=== PATIENT | female | born 1990 | race Two or more races ===

== ENCOUNTER 2016-04-15 22:15 | Emergency (ER) | payer OTHER | END 2016-04-16 01:00 | disposition home or self-care (01) | LOC: ED 22:15 | DX: O20.0 Threatened abortion (principal); Z3A.14 14 weeks gestation of pregnancy ==

== ENCOUNTER 2016-06-15 21:27 | Observation (INO) | payer OTHER, MEDICAID ==
[2016-06-15 21:46] VITALS: BMI 35.9
[2016-06-15] MEDS ORDERED: IV START KIT ONE (21:59)
[2016-06-15] MEDS ORDERED: LACTATED RINGERS 1,000 ML ONE (21:59)
[2016-06-15] MEDS ORDERED: MAGNESIUM HYDROXIDE/AL HYDROX 30 ML UDCUP PO ONE (22:00)
[2016-06-15] MEDS ORDERED: D5LR 1,000 ML IV SCH (22:00)
[2016-06-15] MEDS ORDERED: HYDROXYZINE PAMOATE 50 MG CAPSULE PO ONE (22:00)
[2016-06-15] MEDS ORDERED: ONDANSETRON 4 MG/2ML 2 ML VIAL IV ONE (22:00)
--- NOTE | 2016-06-15 22:09 | PCMOBT ---
OB Triage - Subjective TYRELL JASMEET SALEEM is a 25 year old G3 P at 22+w who presents to L & D triage c/o abdominal pain ALEX 10/12/16 Pt goes to [facility] [place] Uncomplicated course, per pt 2 day history of abdominal pain, starting at mid-epigastric and radiating down left side to LLQ and also left lower back. Pain is sharp in nature. Pt also has nausea which started after the pain started. Pt went to [facility] and was evaluated - was told she had BV was given metronidazole, and was told baby was doing well. Pt has had appendectomy 8 yrs ago. Previous x 1, SAB at 13w x 1 Denies any other medical problems. Denies any h/o drug use, alcohol, or smoking. - Physical Exam General: Other (appeared in mod distress, diffuse abdominal pain) HEENT: Normocephalic, Atraumatic Abdomen: Soft, Fundus Firm and Below Umbilicus (gravid, c/w dates), Other ( tenderness in mid epigastric, LLQ, but soft, no rebound / guarding) - Pelvic Exam Cervix: Closed and Long, Other (no discharge / bleeding) Uterus: Gravid, Nontender - Heart Tones Baseline: 130 - Assessment/ Plan 25 year old G3 P at 22+ weeks with nonspecific abdominal pain does not appear to be obstetrical check CBC, CMP, amylase, lipase start IV fluids [id number] zofran vistaril maalox check OB ultrasound
[2016-06-15 22:34] LABS: ABSOLUTE NEUTROPHIL COUNT 9.8 K/mm3 (1.8-7.7); BASO % 0.3 % (0.2-1.0); EOS # 0.2 (0.0-0.5); EOS % 1.4 % (0.9-2.9); HEMATOCRIT 35.9 % (37.0-47.0); IMM NEUT # 0.1 K/mm3 (0-0.2); IMM NEUT% 0.4 % (0-1); LYMPH # 1.7 (1.0-4.8); LYMPH % 13.8 % (15-45); MEAN CELL VOLUME 80.7 fl (81.0-99.0); MEAN CORPUSCULAR HGB CONC 33.4 g/dl (33.0-37.0); MEAN PLATELET VOLUME 9.8 fl (7.4-10.4); MONO # 0.7 (0.0-0.8); MONO % 5.5 % (4-12); NEUT % 78.6 % (43-75); PLATELET COUNT 270 K/mm3 (130-400)
[2016-06-15] MEDS ORDERED: MAG HYDROX/AL HYDROX/SIMETH 30 ML UDCUP ONE (22:38)
[2016-06-15 22:51] LABS: SPECIFIC GRAVITY 1.025 (1.001-1.030); URINE BILIRUBIN NEGATIVE (NEGATIVE); URINE BLOOD 4+ (NEGATIVE); URINE GLUCOSE (UA) NEGATIVE (NEGATIVE); URINE LEUKOCYTE ESTERASE 1+ (NEGATIVE); URINE NITRITE NEGATIVE (NEGATIVE); URINE PROTEIN TRACE (NEGATIVE); URINE UROBILINOGEN NORMAL (0-1 mg/dl)
[2016-06-15 23:01] LABS: URINE APPEARANCE SL CLOUDY; URINE COLOR DARK YELLOW
--- NOTE | 2016-06-15 23:11 | US ---
Name: TYRELL SALEEM Exam: Limited obstetrical ultrasound Comparison: None Clinical history: Abdominal pain. Gestation should be 23 weeks 0 days. Findings: Transabdominal and endovaginal imaging was performed. There is a gravid uterus and there is a single living intrauterine gestation in cephalic presentation with a heart rate of 153 bpm. Cervix is long and closed at 3.5 cm and there is no funneling. There is no change with fundal pressure. There is a grade 1 anterior placenta without placenta previa. Right ovary is not identified. Left ovary is 4.1 x 3.0 x 1.1 cm and there is flow within the left ovary. There is no free fluid within the cul-de-sac. Gestational fluid volume is grossly normal. anatomic survey is not performed. Impression: 1. Single living intrauterine gestation cephalic presentation 2. Cervix is long and closed 3. Grade 1 anterior placenta without placenta previa. There is no abruption 4. Grossly normal DIRK Note: Findings were discussed Dr. Chiu at 2307 hours
[2016-06-15] MEDS ORDERED: BUTORPHANOL TARTRATE 1 MG/ML VIAL IV ONE (23:16)
[2016-06-15] MEDS ORDERED: LACTATED RINGERS 1,000 ML IV ONE (23:17)
[2016-06-15 23:26] LABS: URINE BACTERIA 3+; URINE MUCUS 3+; URINE RBC >100 /hpf
[2016-06-15 23:27] LABS: ALB/GLOB RATIO 1.1 (>1.0); ALBUMIN 3.1 gm/dL (3.5-5.7); CALCIUM 8.5 mg/dL (8.6-10.3)
--- NOTE | 2016-06-15 23:50 | PDOC36 ---
Provider Note Note: Ultrasound study: cervical length wnl, placenta wnl, normal amnionic fluid, no ovarian cyst / masses noted Lab studies: WBC 12.5, significant for 4+ bld and 1+ LE on u/a. Pt still having pain and nausea S/S suggest nephrolithiasis Will admit for observation, pain control with stadol. Ancef IV fluids. Laboratory Results - last 24 hr 06/15/16 06/15/16 06/15/16 22:13 22:35 22:55 WBC 12.5 H RBC 4.45 Hgb 12.0 Hct 35.9 L MCV 80.7 L MCH 27.0 MCHC 33.4 RDW 14.0 Plt Count 270 Neut % (Auto) 78.6 H Lymph % (Auto) 13.8 L Rogers % (Auto) 5.5 Baso % (Auto) 0.3 Absolute Neuts (auto) 9.8 H Eosinophils % 1.4 Sodium 135 Potassium 3.5 L Chloride 105 Carbon Dioxide 22 Anion Gap 12 BUN 9 Creatinine 0.6 Estimated GFR 121 H BUN/Creatinine Ratio 15 Glucose 204 H Calcium 8.5 L Total Bilirubin 0.2 AST 12 L ALT 10 Alkaline Phosphatase 60 Total Protein 5.9 L Albumin 3.1 L Globulin 2.8 Albumin/Globulin Ratio 1.1 Amylase 78 Lipase 16 Urine Color Dark yellow Urine Appearance Sl cloudy Urine pH 6.0 Ur Specific [place] 1.025 Urine Protein Trace Urine Glucose (UA) Negative Urine Ketones Negative Urine Blood 4+ Urine Nitrite Negative Urine Bilirubin Negative Urine Urobilinogen Normal Ur Leukocyte Esterase 1+ Urine RBC >100 Urine WBC 2-4 Ur Epithelial Cells 7-10 Urine Bacteria 3+ Urine Mucus 3+ % Immature Granulocyt 0.4
[2016-06-16] MEDS ORDERED: ONDANSETRON 4 MG/2ML 2 ML VIAL IV PRN (00:12)
[2016-06-16] MEDS ORDERED: DIPHENHYDRAMINE HCL 50 MG/1 ML VIAL IV PRN (00:12)
[2016-06-16] MEDS ORDERED: BLISTEX LIPSTICK 1 EACH TP PRN (00:12)
[2016-06-16] MEDS ORDERED: DOCUSATE SODIUM 100 MG CAPSULE PO PRN (00:12)
[2016-06-16] MEDS ORDERED: CEFAZOLIN SODIUM 1 GRAM PREMIX 1 G in Premix (D5W) 50 ml 1 EACH IV SCH (00:12)
[2016-06-16] MEDS ORDERED: MAGNESIUM HYDROXIDE/AL HYDROX 30 ML UDCUP PO PRN (00:12)
[2016-06-16] MEDS ORDERED: MENTHOL/CETYLPYRD 1 EACH LOZENGE PO PRN (00:12)
[2016-06-16] MEDS ORDERED: PUMP TUBING ONE (00:34)
[2016-06-16] MEDS ORDERED: CEFAZOLIN SODIUM 1 GRAM PREMIX 50 ML IV ONE (00:35)
[2016-06-16] MEDS: LACTATED RINGERS 1,000 ML IV SCH ×4 (00:43→21:54)
[2016-06-16] MEDS: ACETAMINOPHEN 325 MG TABLET PO PRN ×4 (01:06→21:26)
[2016-06-16] MEDS: BUTORPHANOL TARTRATE 1 MG/ML VIAL IV PRN ×5 (03:49→23:07)
[2016-06-16] MEDS: CEFAZOLIN SODIUM 1 GRAM PREMIX 1 G in Premix (D5W) 50 ml 1 EACH IV SCH ×2 (08:33→16:06)
--- NOTE | 2016-06-16 08:43 | PDOC36 ---
Provider Note Note: Still having intermittent severe pain, now in LLQ mostly, and a little in the back. Pt getting stadol for pain which helps. Nausea is better. Pt is voiding more, now. Urine being strained. Vital Signs - 24 hr 06/16/16 06/16/16 06/16/16 01:00 01:32 04:00 Temperature 98.2 F 98.3 F Pulse Rate 88 75 Respiratory 16 16 16 Rate Blood Pressure 110/63 110/59 O2 Saturation 99 96 by Pulse Oximetry 06/16/16 08:00 Temperature 98.6 F Pulse Rate 85 Respiratory 16 Rate Blood Pressure 101/56 O2 Saturation 98 by Pulse Oximetry Abdomen: soft, gravid, diffuse tenderness without rebound or guarding continue IV fluids, pain control with stadol. chk heart tones daily
--- NOTE | 2016-06-16 10:04 | HP ---
TYRELL SOSA [id number] DATE OF ADMISSION: June 16, 2016 ADMITTING DIAGNOSES: 1. Nephrolithiasis. 2. 22-week . HISTORY OF PRESENT ILLNESS: Patient is a 25-year-old 3, para 1, at 22 weeks of who presents to labor and delivery triage complaining of abdominal pain. Patient's estimated due date is October 12, 2016. Patient goes to [facility] in [place] and had an otherwise uncomplicated course. Patient complains of approximately a two day history of abdominal pain which started in the mid epigastric area and subsequently down to the left side to the left lower quadrant and also left lower back pain. It is sharp in nature. Patient also has had nausea which started after the pain started. Yesterday she went to [facility] and was evaluated and subsequently was told she had bacterial vaginosis and was given metronidazole and also an evaluation of the showed that the baby was doing well at that time. Studies upon admission were significant for a WBC of 12.5, hemoglobin of 12.0, platelet count 270, creatinine of 0.6, AST of 12, ALT of 10, amylase of 78 and lipase of 60. The urinalysis showed 4+ blood, negative nitrites and 1+ leukocytes. An ultrasound was performed which showed a normal cervical length. The cervix is long and closed, and there is grossly normal amniotic fluid. There is no abruption of placenta. PAST MEDICAL HISTORY: Patient has had: 1. One prior vaginal delivery. 2. On spontaneous . 3. She states that she did have a history of kidney stones. PAST SURGICAL HISTORY: Patient has had an appendectomy eight years ago. PHYSICAL EXAMINATION: GENERAL: Patient appeared to be in moderate distress with diffuse abdominal pain. HEART: Is regular rate and rhythm. LUNGS: Clear to auscultation bilaterally. ABDOMEN: Soft, fundus is firm and gravid. There is tenderness in the midepigastric and left lower quadrant but her abdomen is soft with no rebound or guarding. PELVIC: Shows a closed and long cervix with no discharge or bleeding. heart tones were noted at 130. ASSESSMENT/PLAN: This is a 25-year-old 3, para 1, at 22 weeks of with nonspecific abdominal pain which does not appear to be obstetrical. However, the laboratory studies are significant for 4+ blood in the urine and there is suspicion for kidney stones. Patient is to be admitted for IV hydration and pain control. We will also start Ancef and check heart tones daily. Patient is also to be given Zofran for nausea as well.
[2016-06-17] MEDS: CEFAZOLIN SODIUM 1 GRAM PREMIX 1 G in Premix (D5W) 50 ml 1 EACH IV SCH ×2 (01:23→07:57)
[2016-06-17] MEDS: ACETAMINOPHEN 325 MG TABLET PO PRN ×2 (01:24→22:12)
[2016-06-17] MEDS: BUTORPHANOL TARTRATE 1 MG/ML VIAL IV PRN ×5 (04:47→23:32)
[2016-06-17] MEDS: LACTATED RINGERS 1,000 ML IV SCH ×3 (05:48→18:23)
--- NOTE | 2016-06-17 10:28 | PDOC36 ---
Provider Note Note: Pt still having intermittent severe pain. States her urine has odor and tea colored. Voiding regularly. Pain med - on stadol. AVSS - afebrile Abdomen soft, tenderness without rebound / guarding LLQ and slight tenderness left lower back / flank. continue IV fluids / stadol august d/c ancef.
[2016-06-18] MEDS: LACTATED RINGERS 1,000 ML IV SCH ×2 (00:52→07:34)
[2016-06-18] MEDS: BUTORPHANOL TARTRATE 1 MG/ML VIAL IV PRN ×2 (05:10→10:58)
[2016-06-18] MEDS: ACETAMINOPHEN 325 MG TABLET PO PRN (07:22)
--- NOTE | 2016-06-18 09:51 | PDOC36 ---
Provider Note Note: Pt reported pink tinged mucous yesterday. heart tones were normal. Pt reports voiding well with no dysuria. Pt states she is now getting right flank pain, not as bad as on her left side. Left flank pain is worse when ambulating. No more nausea since first day of admission. Exam: Alert, mild distress Abdomen - tenderness in LLQ with deep palpation with no rebound / guarding; left lower back tenderness. Right flank tenderness noted. a/p) check bilateral renal ultrasound recheck bmp, u/a cont stadol check daily heart tones Vital Signs - 24 hr 06/17/16 06/17/16 06/17/16 11:31 14:14 15:50 Temperature 98.3 F Pulse Rate 89 85 Respiratory 16 16 16 Rate Blood Pressure 120/63 O2 Saturation 96 96 by Pulse Oximetry 06/17/16 06/17/16 06/17/16 16:22 19:10 19:32 Temperature 98.2 F 97.9 F Pulse Rate 70 72 Respiratory 18 16 16 Rate Blood Pressure 123/55 99/58 O2 Saturation 98 97 by Pulse Oximetry 06/18/16 06/18/16 06/18/16 00:13 00:20 00:56 Temperature 97.9 F Pulse Rate 73 Respiratory 18 16 Rate Blood Pressure 95/54 O2 Saturation 97 97 by Pulse Oximetry 06/18/16 06/18/16 06/18/16 04:30 05:58 06:36 Temperature 97.8 F 97.6 F Pulse Rate 73 60 66 Respiratory 15 16 Rate Blood Pressure 89/54 96/50 97/44 O2 Saturation 98 97 by Pulse Oximetry 06/18/16 07:23 Temperature Pulse Rate Respiratory 16 Rate Blood Pressure O2 Saturation by Pulse Oximetry
[2016-06-18 10:29] LABS: CALCIUM 8.5 mg/dL (8.6-10.3)
[2016-06-18] MEDS ORDERED: DIPHENHYDRAMINE HCL 25 MG CAPSULE PO SCH (12:00)
[2016-06-18 12:23] VITALS: BP 101/51
--- NOTE | 2016-06-18 12:42 | US ---
Exam: Renal ultrasound COMPARISON: Radiographs 10/16/[address] 10/15/2011 INDICATION: 23 weeks . Left lower quadrant pain, history of kidney stones. Findings: Renal ultrasound was obtained. Right kidney measures 13.1 cm in length and left kidney measures 13.0 cm in length. There is minor fullness of both collecting systems without charleen hydronephrosis. There is normal renal cortical thickness and echogenicity. No definite urinary calculus is identified. Resistive index on the right is 0.65 and on the left is 0.69. Urinary bladder contained 36 8 mL prevoid. Both ureteral jets were identified. Postvoid residual is 39 mL. IMPRESSION: 1. No sonographic evidence of urinary calculus. 2. Minor fullness of both collecting systems without charleen hydronephrosis. 3. Post void residual 39 mL.
[2016-06-18 13:05] LABS: URINE BILIRUBIN NEGATIVE (NEGATIVE); URINE BLOOD 4+ (NEGATIVE); URINE GLUCOSE (UA) NEGATIVE (NEGATIVE); URINE LEUKOCYTE ESTERASE TRACE (NEGATIVE); URINE NITRITE NEGATIVE (NEGATIVE); URINE PROTEIN NEGATIVE (NEGATIVE); URINE UROBILINOGEN NORMAL (0-1 mg/dl)
[2016-06-18 13:26] LABS: URINE APPEARANCE HAZY; URINE COLOR LIGHT YELLOW
[2016-06-18 13:43] LABS: URINE RBC 30-40 /hpf
[2016-06-18 13:44] LABS: URINE BACTERIA FEW
--- NOTE | 2016-06-18 21:18 | DS ---
AREN HARPERTYRELL [id number] DATE OF ADMISSION: June 15, 2016 DATE OF DISCHARGE: June 18, 2016 ADMITTING DIAGNOSES: 1. 22 weeks . 2. Abdominal pain. 3. Nephrolithiasis. HISTORY OF PRESENT ILLNESS: The patient is a 25-year-old 3, para 1, 0//1 at 22 weeks plus 6 days. Patient was admitted complaining of abdominal pain. Patient has an estimated delivery date of October 12, 2016 by report. Patient goes to [facility] for her obstetrical care and has had thus far an uncomplicated course per the patient. Patient presented with a two-day history of abdominal pain starting in the midepigastrium and radiating down the left side to the left lower quadrant and also left lower back. Patient describes the pain as sharp in nature as well as nausea which started after the pain had started. The day prior to admission the patient went to [facility] and was evaluated and was given metronidazole for bacterial vaginosis and was told that the and baby were doing well. Upon admission several studies were performed. She had an ultrasound which showed normal closed cervix with a cervical length of 3.5 cm. The placenta was anterior and without any previa or signs of abruption. The right ovary was not identified. However, the left ovary was noted and there was flow within the left ovary. No masses were noted. Patient's laboratory studies showed a WBC of 12.5, hemoglobin of 12.0, platelet count of 270, AST of 12, ALT of 10, amylase of 78, lipase of 16, creatinine 0.6. The urinalysis showed 4+ urine blood and 1+ leukocyte esterase with urine bacteria and mucus noted. Due to the hematuria that was noted and dehydration, patient was admitted for presumptive nephrolithiasis. Patient was started on Ancef and was given Stadol as needed for pain. The urine was being strained. Patient continued with this. On hospital day number two, the Ancef was discontinued as she had continued to be afebrile. Patient had intermittent pain throughout her hospital stay and received Stadol approximately four doses per day. She had voided well and denies passing any stones. On the third hospital day, the patient reported some pain also in her right flank, and therefore an ultrasound was performed of the kidneys and bladder. This showed no sonographic evidence of urinary calculus. There was minor fullness of both collecting systems. However, no charleen hydronephrosis noted. Both ureteral jets were identified in the bladder ultrasound, and there was post void residual of 39. Upon evaluation of the ultrasound, it was concluded that any urinary calculi had been passed. Patient still complained of pain, and this may be residual pain from the kidney stone. However, as there are no remaining calculi noted, patient is discharged. She was given prescriptions for [place] and already has an appointment with her primary feed adviser the next day. Patient has had daily heart monitoring with Doppler tones and this has been normal. Patient is discharged with prescription for [place] #20 and is in stable condition upon discharge.
== END 2016-06-18 15:30 | disposition home or self-care (01) ==
LOC: FBCOUT 21:27 → FBC 21:27 → FBCOUT 23:53 → MS 23:53
PROVIDERS: ADMIT Obstetrics & Gynecology; ATTEND Obstetrics & Gynecology
DX: O99.612 Diseases of the digestive system complicating pregnancy, second trimester (principal); N20.0 Calculus of kidney; Z87.442 Personal history of urinary calculi; Z3A.23 23 weeks gestation of pregnancy
CPT/HCPCS: 96374; 96375; 96360; 96361; 83690; 82150; 85025; 80048; 80053; 81001 ×2; 36415; 76817; 76770; 76816; 59050; J0690 ×3; A9270 ×9; J2405 ×2; J7120 ×10; J0595 ×13; G0463

== ENCOUNTER 2016-06-23 10:42 | Emergency (ER) | payer OTHER, MEDICAID ==
[2016-06-23] MEDS ORDERED: MAALOX/LIDO2%VISC/SIMETHICONE 40 ML BOT ONE (11:12)
[2016-06-23] MEDS ORDERED: SODIUM CHLORIDE 0.9% 1,000 ML ONE (11:12)
[2016-06-23] MEDS ORDERED: DIPHENHYDRAMINE HCL 50 MG/1 ML VIAL ONE (11:13)
[2016-06-23] MEDS ORDERED: FAMOTIDINE 10 MG/ML 2ML VIAL ONE (11:13)
[2016-06-23] MEDS ORDERED: ACETAMINOPHEN 500 MG TABLET ONE (11:13)
[2016-06-23 11:44] LABS: ALB/GLOB RATIO 1.1 (>1.0); ALBUMIN 3.3 gm/dL (3.5-5.7); CALCIUM 8.8 mg/dL (8.6-10.3)
[2016-06-23 11:57] LABS: ABSOLUTE NEUTROPHIL COUNT 6.7 K/mm3 (1.8-7.7); BASO # 0.1 K/mm3 (0.0-0.2); BASO % 0.5 % (0.2-1.0); EOS # 0.2 (0.0-0.5); EOS % 1.9 % (0.9-2.9); HEMATOCRIT 34.5 % (37.0-47.0); HEMOGLOBIN 11.3 gm/l (12.0-16.0); IMM NEUT% 0.3 % (0-1); LYMPH # 1.6 (1.0-4.8); LYMPH % 17.8 % (15-45); MEAN CELL VOLUME 81.4 fl (81.0-99.0); MEAN CORPUSCULAR HEMOGLOBIN 26.7 pg (27.0-31.0); MEAN CORPUSCULAR HGB CONC 32.8 g/dl (33.0-37.0); MEAN PLATELET VOLUME 10.2 fl (7.4-10.4); MONO # 0.6 (0.0-0.8); MONO % 6.1 % (4-12); NEUT % 73.4 % (43-75); PLATELET COUNT 280 K/mm3 (130-400); RED CELL DISTRIBUTION WIDTH 13.7 % (11.5-14.5)
[2016-06-23 12:02] LABS: SPECIFIC GRAVITY 1.015 (1.001-1.030); URINE BILIRUBIN NEGATIVE (NEGATIVE); URINE BLOOD 2+ (NEGATIVE); URINE GLUCOSE (UA) NEGATIVE (NEGATIVE); URINE LEUKOCYTE ESTERASE NEGATIVE (NEGATIVE); URINE NITRITE NEGATIVE (NEGATIVE); URINE PROTEIN NEGATIVE (NEGATIVE); URINE UROBILINOGEN NORMAL (0-1 mg/dl)
[2016-06-23 12:03] LABS: URINE APPEARANCE CLEAR; URINE COLOR LIGHT YELLOW
[2016-06-23 12:20] LABS: URINE BACTERIA FEW; URINE EPITHELIAL CELLS 0-1 /hpf; URINE RBC 0 /hpf; URINE WBC 0-1 /hpf
== END 2016-06-23 13:33 | disposition home or self-care (01) ==
LOC: ED 10:42
DX: O26.892 Other specified pregnancy related conditions, second trimester (principal); R31.9 Hematuria, unspecified; R10.9 Unspecified abdominal pain
CPT/HCPCS: 83690; 82150; 85025; 82550; 80053; 81001; 96375; 99284; 96374; 96361; 99283; J1200; A9270 ×2; J7030